=== PATIENT | male | born 1985 | race Caucasian/White ===

== ENCOUNTER 2022-01-06 14:11 | Inpatient (IN) | payer OTHER ==
[2022-01-06 14:51] VITALS: BMI 30.5
[2022-01-06] MEDS ORDERED: DICYCLOMINE HCL 10 MG CAPSULE PO PRN (16:58)
[2022-01-06] MEDS ORDERED: ONDANSETRON *ODT* 4 MG TABLET SL PRN (16:58)
[2022-01-06] MEDS ORDERED: ACETAMINOPHEN 325 MG TABLET (FP) PO PRN ×2 (16:58)
[2022-01-06] MEDS ORDERED: MAGNESIUM CITRATE 300 ML BOTTLE PO PRN (16:58)
[2022-01-06] MEDS ORDERED: IBUPROFEN 400 MG TABLET (FP) PO PRN (16:58)
[2022-01-06] MEDS ORDERED: MAGNESIUM HYDROX 2400MG/30ML ORAL SUSPENSION 30 ML CUP PO PRN (16:58)
[2022-01-06] MEDS ORDERED: chlordiazePOXIDE HCL 25 MG CAPSULE PO PRN (16:58)
[2022-01-06] MEDS ORDERED: BENZOCAINE/MENTHOL (CHLORASEPTIC ) LOZENGE MM PRN (16:58)
[2022-01-06] MEDS ORDERED: IBUPROFEN 600 MG TABLET (FP) PO PRN (16:58)
[2022-01-06] MEDS ORDERED: MAG HYDROX/AL HYDROX/SIMETH 30 ML UNIT-DOSE CUP PO PRN (16:58)
[2022-01-06] MEDS: hydrOXYzine PAMOATE 25 MG CAPSULE (FP) PO SCH ×2 (18:41→22:38)
[2022-01-06] MEDS: chlordiazePOXIDE HCL 25 MG CAPSULE PO SCH ×2 (18:42→22:33)
[2022-01-06] MEDS: NICOTINE 10 MG CARTRIDGE (INHALER) IH PRN (19:51)
[2022-01-06] MEDS ORDERED: INSULIN (NOVOLOG) ASPART 100 UNITS/ML 10ML VIAL SQ ONE (21:54)
[2022-01-06] MEDS: MELATONIN 5 MG TABLETS PO SCH (22:33)
[2022-01-06] MEDS: THIAMINE HCL 100 MG TABLET (FP) PO SCH (22:33)
[2022-01-06] MEDS: METHOCARBAMOL 500 MG TABLET PO PRN (22:37)
[2022-01-06] MEDS: INSULIN SLIDING SCALE (NOVOLOG) 1 VIAL SQ SCH (22:38)
[2022-01-07] MEDS: hydrOXYzine PAMOATE 25 MG CAPSULE (FP) PO SCH ×5 (05:57→22:01)
[2022-01-07] MEDS: chlordiazePOXIDE HCL 25 MG CAPSULE PO SCH ×4 (05:57→22:01)
[2022-01-07] MEDS: INSULIN SLIDING SCALE (NOVOLOG) 1 VIAL SQ SCH ×4 (06:55→22:01)
[2022-01-07] MEDS: NICOTINE 10 MG CARTRIDGE (INHALER) IH PRN ×2 (09:15→22:26)
[2022-01-07] MEDS: PRENATAL VITAMINS W/ FOLIC ACID TABLET (FP) PO SCH (10:08)
[2022-01-07] MEDS: LOPERAMIDE HCL 2 MG CAPSULE PO PRN ×2 (10:11→21:13)
[2022-01-07 12:27] LABS: HEMATOCRIT 35.9 % (35.4-49); HEMOGLOBIN 12.5 GM/dL (11.7-16.9); MCH 36.2 pg (25.7-33.7); MCHC 34.8 g/dl (32.0-35.9); MEAN CELL VOLUME 104.1 fl (80-96); MEAN PLT VOLUME 9.1 fl (7.5-11.1); PLATELET COUNT 214 10^3/uL (134-434); RBC 3.45 M/mm3 (4.00-5.60); RDW 14.1 % (11.9-15.9); WHITE BLOOD COUNT 3.7 K/mm3 (4.0-10.0)
[2022-01-07 12:45] LABS: CALCIUM 9.7 mg/dL (8.5-10.1)
[2022-01-07 12:49] LABS: CREATININE 0.9 mg/dL (0.55-1.3)
[2022-01-07 12:50] LABS: BILIRUBIN,TOTAL 2.2 mg/dL (0.2-1); TOT PROT 8.3 g/dl (6.4-8.2)
[2022-01-07] MEDS ORDERED: INSULIN SLIDING SCALE (NOVOLOG) 1 VIAL SQ ONE (13:29)
[2022-01-07] MEDS ORDERED: INSULIN (NOVOLOG) ASPART 100 UNITS/ML 10ML VIAL SQ ONE (13:30)
[2022-01-07] MEDS ORDERED: INSULIN (LEVEMIR) 100 UNITS/ML UNITS SQ SCH (22:00)
[2022-01-07] MEDS: THIAMINE HCL 100 MG TABLET (FP) PO SCH (22:01)
[2022-01-07] MEDS: MELATONIN 5 MG TABLETS PO SCH (22:02)
[2022-01-08] MEDS: chlordiazePOXIDE HCL 25 MG CAPSULE PO SCH ×4 (06:17→22:32)
[2022-01-08] MEDS: hydrOXYzine PAMOATE 25 MG CAPSULE (FP) PO SCH ×5 (06:17→22:32)
[2022-01-08] MEDS: INSULIN SLIDING SCALE (NOVOLOG) 1 VIAL SQ SCH ×4 (06:21→22:34)
[2022-01-08] MEDS: LOPERAMIDE HCL 2 MG CAPSULE PO PRN (07:03)
[2022-01-08] MEDS: PRENATAL VITAMINS W/ FOLIC ACID TABLET (FP) PO SCH (10:12)
[2022-01-08] MEDS: METHOCARBAMOL 500 MG TABLET PO PRN ×2 (10:14→18:08)
[2022-01-08] MEDS: NICOTINE 10 MG CARTRIDGE (INHALER) IH PRN ×2 (11:10→22:42)
[2022-01-08] MEDS: BISMUTH SUBSALICYLATE 524 MG/30 ML PO PRN ×2 (18:09→22:38)
[2022-01-08] MEDS ORDERED: cloNIDine HCL 0.1 MG TABLET PO ONE (22:21)
[2022-01-08] MEDS: MELATONIN 5 MG TABLETS PO SCH (22:32)
[2022-01-08] MEDS: THIAMINE HCL 100 MG TABLET (FP) PO SCH (22:32)
[2022-01-08] MEDS: INSULIN (LEVEMIR) 100 UNITS/ML UNITS SQ SCH (22:34)
[2022-01-09] MEDS ORDERED: chlordiazePOXIDE HCL 10 MG CAPSULE PO PRN
[2022-01-09] MEDS ORDERED: INSULIN SLIDING SCALE (NOVOLOG) 1 VIAL SQ ONE ×3 (05:35→21:04)
[2022-01-09] MEDS: hydrOXYzine PAMOATE 25 MG CAPSULE (FP) PO SCH ×5 (05:36→22:10)
[2022-01-09] MEDS: chlordiazePOXIDE HCL 10 MG CAPSULE PO SCH ×4 (05:36→22:10)
[2022-01-09] MEDS: INSULIN SLIDING SCALE (NOVOLOG) 1 VIAL SQ SCH ×4 (08:15→23:09)
[2022-01-09] MEDS: PRENATAL VITAMINS W/ FOLIC ACID TABLET (FP) PO SCH (10:11)
[2022-01-09] MEDS: INSULIN (LEVEMIR) 100 UNITS/ML UNITS SQ SCH ×2 (10:12→21:46)
[2022-01-09] MEDS: METHOCARBAMOL 500 MG TABLET PO PRN (10:13)
[2022-01-09] MEDS: LOPERAMIDE HCL 2 MG CAPSULE PO PRN (10:24)
[2022-01-09] MEDS: NICOTINE 10 MG CARTRIDGE (INHALER) IH PRN (10:24)
[2022-01-09] MEDS: BISMUTH SUBSALICYLATE 524 MG/30 ML PO PRN (16:33)
[2022-01-09] MEDS: MELATONIN 5 MG TABLETS PO SCH (22:10)
[2022-01-09] MEDS: THIAMINE HCL 100 MG TABLET (FP) PO SCH (22:10)
[2022-01-10] MEDS: chlordiazePOXIDE HCL 10 MG CAPSULE PO SCH ×2 (05:51→18:08)
[2022-01-10] MEDS: hydrOXYzine PAMOATE 25 MG CAPSULE (FP) PO SCH ×5 (05:51→21:54)
[2022-01-10] MEDS: INSULIN SLIDING SCALE (NOVOLOG) 1 VIAL SQ SCH ×4 (08:15→21:55)
[2022-01-10] MEDS: LOPERAMIDE HCL 2 MG CAPSULE PO PRN (10:23)
[2022-01-10] MEDS: PRENATAL VITAMINS W/ FOLIC ACID TABLET (FP) PO SCH (10:23)
[2022-01-10] MEDS: METHOCARBAMOL 500 MG TABLET PO PRN ×2 (10:23→21:53)
[2022-01-10] MEDS: INSULIN (LEVEMIR) 100 UNITS/ML UNITS SQ SCH ×2 (10:25→21:57)
[2022-01-10] MEDS: NICOTINE 10 MG CARTRIDGE (INHALER) IH PRN ×2 (10:35→23:02)
[2022-01-10] MEDS: METOPROLOL TARTRATE 25 MG TABLET (FP) PO SCH (13:04)
[2022-01-10] MEDS: THIAMINE HCL 100 MG TABLET (FP) PO SCH (21:52)
[2022-01-10] MEDS: MELATONIN 5 MG TABLETS PO SCH (21:52)
[2022-01-10] MEDS ORDERED: METOPROLOL TARTRATE 50 MG TABLET (FP) PO ONE (22:07)
[2022-01-11] MEDS ORDERED: chlordiazePOXIDE HCL 10 MG CAPSULE PO ONE (05:00)
[2022-01-11] MEDS ORDERED: INSULIN SLIDING SCALE (NOVOLOG) 1 VIAL SQ ONE (06:27)
[2022-01-11] MEDS: hydrOXYzine PAMOATE 25 MG CAPSULE (FP) PO SCH ×2 (07:07→09:42)
[2022-01-11] MEDS: INSULIN SLIDING SCALE (NOVOLOG) 1 VIAL SQ SCH (07:08)
[2022-01-11 08:47] VITALS: BP 135/93; PULSE 88; RESP 16; TEMP 96.9
[2022-01-11] MEDS: INSULIN (LEVEMIR) 100 UNITS/ML UNITS SQ SCH (09:42)
[2022-01-11] MEDS: METOPROLOL TARTRATE 25 MG TABLET (FP) PO SCH (09:42)
[2022-01-11] MEDS: PRENATAL VITAMINS W/ FOLIC ACID TABLET (FP) PO SCH (09:42)
== END 2022-01-11 09:24 | disposition home or self-care (01) | DRG 775 ==
LOC: YASAS 14:11 → Y3N 17:00
PROVIDERS: ADMIT Allergy & Immunology; ATTEND Surgery
PROC: HZ2ZZZZ Detoxification Services for Substance Abuse Treatment (ICD-10-PCS; principal; 2022-01-06)
DX: F10.230 Alcohol dependence with withdrawal, uncomplicated (principal); F17.210 Nicotine dependence, cigarettes, uncomplicated; E11.59 Type 2 diabetes mellitus with other circulatory complications; E11.65 Type 2 diabetes mellitus with hyperglycemia; Z79.4 Long term (current) use of insulin; R94.31 Abnormal electrocardiogram [ECG] [EKG]; R00.0 Tachycardia, unspecified; Z89.432 Acquired absence of left foot
CPT/HCPCS: 36415; 80053; 82962; 85027; 86780; 93005; 93010; C9803-CS; J0735; Q0162; U0003; U0005